=== PATIENT | female | born 1950 | race Caucasian/White ===

== ENCOUNTER 2019-04-30 10:19 | Outpatient (CLI) | payer OTHER | END 2019-04-30 23:59 | disposition home or self-care (01) | LOC: CARD 10:19 | PROVIDERS: ATTEND Internal Medicine | DX: R20.2 Paresthesia of skin (principal) | CPT/HCPCS: 95886; 95908 ==

== ENCOUNTER 2019-10-18 11:39 | Outpatient (CLI) | payer OTHER ==
[2019-10-18] MEDS ORDERED: MIDAZOLAM 1 MG/ML, 5ML ONE (12:16)
[2019-10-18] MEDS ORDERED: FENTANYL PF 100 MCG/2ML ONE ×2 (12:16)
[2019-10-18] MEDS ORDERED: ALPRazolam 1MG TAB ONE ×2 (12:27→13:01)
== END 2019-10-18 23:59 | disposition home or self-care (01) ==
LOC: RAD 11:39
PROVIDERS: ATTEND Internal Medicine
DX: G61.82 Multifocal motor neuropathy (principal); M48.56XA Collapsed vertebra, not elsewhere classified, lumbar region, initial encounter for fracture; M48.061 Spinal stenosis, lumbar region without neurogenic claudication; M48.07 Spinal stenosis, lumbosacral region; M48.02 Spinal stenosis, cervical region
CPT/HCPCS: 72141; 72146; 72148; J3010; J2250